=== PATIENT | female | born 1955 | race Hispanic/Latino ===

== ENCOUNTER 2024-05-27 18:09 | Emergency (ER) | payer MEDICARE ==
[2024-05-27] VITALS (12 sets, daily range): BP systolic 100–136; BP diastolic 65–81
[~2024-05-27] VITALS: Ht 158.8 cm; Wt 83.0 kg
[2024-05-27] MEDS ORDERED: ACETAMINOPHEN 500 MG TAB PO ONE (19:45)
[2024-05-27] MEDS ORDERED: SODIUM CHLORIDE 0.9% 1,000 ML IV ONE ×2 (19:45)
[2024-05-27] MEDS ORDERED: ONDANSETRON 4 MG/TAB ODT PO ONE (19:45)
[2024-05-27] MEDS ORDERED: KETOROLAC TROMETHAMINE 30 MG/ML SDV IV ONE (19:45)
[2024-05-27 19:55] LABS: URINE BILIRUBIN - DIPSTICK Negative (NEGATIVE); URINE BLOOD DIPSTICK Trace-intact (NEGATIVE); URINE COLOR Yellow; URINE GLUCOSE - DIPSTICK Negative (NEGATIVE); URINE KETONE Negative (NEGATIVE); URINE LEUK ESTERASE Negative (NEGATIVE); URINE NITRITE - DIPSTICK Negative (Negative); URINE PH 6.5 (4.5-8.0); URINE PROTEIN - DIPSTICK Trace mg/dL (NEG-TRACE)
[2024-05-27 19:57] LABS: BASO% 0.4 % (0-3); EOS% 0.1 % (0-8); HEMATOCRIT 48.9 % (37.0-47.0); HEMOGLOBIN 16.8 g/dl (12.0-16.0); IMMATURE GRANULOCYTES 0.1 % (0.0-5.0); LYMPH% 18.6 % (15-41); MEAN CELL VOLUME 101.9 fL CALC (80.0-100.0); MEAN CORPUSCULAR HGB CONC 34.4 g/dL CAL (32.0-36.0); MONO% 8.9 % (2-13); NEUT# 6.03 thou/uL (2.00-7.15); NEUT% 71.9 % (42-76); RED BLOOD COUNT 4.8 mill/uL (4.20-5.60); RED CELL DISTRI WIDTH 11.6 % (11.5-15.5)
[2024-05-27 20:05] LABS: ALBUMIN 4.5 g/dL (3.2-5.0); ALKALINE PHOSPHATASE 49 u/l (38-126); ANION GAP 20 (6-22 (CALC)); BILIRUBIN, TOTAL 1.5 mg/dL (0.02-1.3); BUN 6 mg/dL (8-23); BUN/CREATININE RATIO 9 (12-20 (CALC)); CHLORIDE 100 mmol/l (95-108); CREATININE 0.7 mg/dL (0.5-1.0); ESTIMATED GFR 94 ML/MIN (>=90 (CALC)); LIPASE 37 u/l (23-300); POTASSIUM 4.6 mmol/l (3.5-5.1); SGOT/AST 51 u/l (9-36); SODIUM 137 mmol/l (137-146); TOTAL PROTEIN 8.1 g/dL (6.3-8.2)
[2024-05-27 20:06] LABS: CARBON DIOXIDE 22 mmol/l (22-30)
[2024-05-27] MEDS ORDERED: AZITHROMYCIN 250 MG/TAB PO ONE (23:05)
[2024-05-27] MEDS ORDERED: ZPAK PO (23:09)
[2024-05-27] MEDS ORDERED: OMNICEF300 M1 PO (23:09)
== END 2024-05-27 23:50 | disposition home or self-care (01) ==
LOC: ED 18:09
PROVIDERS: Internal Medicine
DX: J15.9 Unspecified bacterial pneumonia (principal); Z20.822 Contact with and (suspected) exposure to COVID-19
CPT/HCPCS: J0696; Q9967